=== PATIENT | female | born 1995 | race Asian ===

== ENCOUNTER 2025-06-21 08:27 | Outpatient (AMB) | payer OTHER, BC, SELFPAY ==
--- NOTE | 2025-06-21 08:34 | A.OFFVIS_ITS ---
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 She gets 2 types of headaches. I migraine type headache which occurs about 5 times a month which is intense and maybe preceded by visual aura of spots and blurred vision and squiggly lines. It is associated with nausea vomiting photophobia and sonophobia. She can not function with these and has to go to bed in a quiet dark room. She also gets more frequent daily headaches which are more muscle tension type headaches that can last from minutes to several hours which are sharper or more pressure-like as opposed to the throbbing pulsating migraine. The headaches are generally bilateral mostly behind the eyes top of the head and temples. She also has chronic neck pain and stiffness and pain radiating into the left arm and occasionally left leg and rarely the right leg. She denies any neck injuries. In the neck problem has been going on for 2 years and has increased in the last 1 year. Activity and bending and movement increase her headache and she prefers to sleep. She works 3rd shift and averages only 3 hours of sleep a day if she is yobany it some days she does not sleep at all when she comes home from work. She snores at night but does not stop breathing. She does not drink too much caffeine no alcohol. Occasional marijuana use. She has a family history of headaches possibly migraines in her mother and father and heart disease in her mother. She has not been on any prescription medications and has had no workup done previously. Her only medication at this point and previously has been ibuprofen averaging a 1000 mg a day or every other day which also helps her chronic neck pain. In the past she has also tried Flexeril for her neck pain but is currently not taking it. She has a control implant but that has not impacted her headache frequency or intensity. 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 and has been cancer-free for 14 years FOR[facility]LY [facility], [facility]–1983 Medical History Hypomagnesemia Visual changes Obesity Graves disease Anxiety Acute promyelocytic leukemia Depression Migraine without status migrainosus, not intractable Vitamin D deficiency Hyperthyroidism affecting in first trimester Maternal varicella, non-immune Rubella non-immune status, antepartum Marijuana use Review of Systems Const Details: ?Sleep Difficulty getting to sleep??yes.??Difficulty maintaining sleep??yes?.??Urge to move legs??denies.??Teeth grinding??denies.??Shouting or Kicking during sleep??denies.??Abnormal behavior during sleep??denies.??Excessive sleep ??denies.??Snoring??yes.??Daytime sleepiness??denies.? General/Constitutional Change in appetite??denies.??Chills??denies.??Fatigue??denies.??Fever??denies.?? Weight gain??denies.??Weight loss??denies.? Ophthalmologic Blurred vision??denies.??Diminished visual acuity??denies.? ENT Stuffiness??denies.??Decreased hearing??denies.??Dry mouth??denies.??Ear pain??denies.??Nosebleed??denies.??Ringing in the ears??denies.??Sinus pain ??denies.??Sore throat??denies.??Swollen glands??denies.? Endocrine Cold intolerance??denies.??Excessive thirst??denies.??Frequent urination ??denies.??Heat intolerance??denies.? Respiratory Shortness of breath??denies.??Chest pain??denies.??Cough??denies.? Breast Breast lump??denies.??Nipple discharge??denies.? Cardiovascular Chest pain at rest??denies.??Chest pain with exertion??denies.??Claudication ??denies.??Fluid accumulation in the legs??denies.??Irregular heartbeat ??denies.??Palpitations??denies.? Gastrointestinal Abdominal pain??denies.??Constipation??denies.??Diarrhea??denies.??Heartburn ??denies.??Nausea??denies.??Rectal bleeding??denies.? Hematology Easy bruising??denies.??Prolonged bleeding??denies.? Genitourinary Frequent urination??denies.??Urgency??denies.??Incontinence??denies.??Erectile Dysfunction??denies.? Musculoskeletal Neck pain??yes.??Back pain??denies.??Muscle aches??yes.??Painful joints ??denies.? Neurologic Difficulty swallowing??denies.??Balance difficulty??denies.??Coordination ??normal.??Difficulty speaking??denies.??Dizziness??denies.??Fainting ??denies.??Gait abnormality??denies.??Headache??chronic.??Loss of strength ??denies.??Loss of use of extremity??denies.??Memory loss??denies.??Seizures ??denies.??Tics??denies.??Tingling/Numbness??left UE.??Transient loss of vision??denies.??Tremor??denies.? Psychiatric Anxiety??yes.??Auditory/visual hallucinations??denies.??Delusions??denies.?? Depressed mood??denies.??Stressors??yes.??Substance abuse??denies.??Suicidal thoughts??denies.? Physical Exam Neuro Other: ?Mini Mental Status Exam Level of Consciousness:?Alert.? Orientation:?Knows correct year, month, date, day and season.?Knows correct city, county and state. Knows correct location and floor.? Registration:?Able to register 3 objects.? Attention:?Serial 7's performed accurately.? Recall:?Able to recall 3 out of 3 objects.? Language:?Normal spontaneous speech, fluency, repetition, naming, compreh ension, reading, and writing.? Total Score:?30/30.? Neurological Abnormal neurological findings:??none.? Mental Status:?Alert and oriented X 3.?Normal attention, orientation, memory, and affect.? Cranial Nerves:?Pupils are equal, round and reactive to light. Fundoscopy shows normal disc bilaterally. External occular muscles are intact. Visual cazares are full, no ptosis. Face is symmetrical, no facial weakness or droop. Facial sensations are normal. Tongue protrudes in midline. Palate elevates symmetrically. Shoulder shrugging is normal.? Motor Examination:?Normal muscle tone, bulk and strength.?No atrophy or fasciculations.?No drift of the extended upper extremities.?Deep tendon reflexes are 2+.?Plantars are flexor.? Motor Strength:? Proximal Muscles (out of 5):?5 Distal Muscles (out of 5):?5 Neck Flexors (out of 5):?5 Neck Extensors (out of 5):?5 Deltoid (out of 5):?5 Biceps (out of 5):?5 Triceps (out of 5):?5 Serratus Anterior (out of 5):?5 Wrist Extensors (out of 5):?5 APB (out of 5):?5 Finger Spread (out of 5):?5 Ileopsoas (out of 5):?5 Quadriceps (out of 5):?5 Hamstrings (out of 5):?5 Tibialis Anterior (out of 5):?5 Peronei (out of 5):?5 EDB (out of 5):?5 Gastrocnemius (out of 5):?5 Straight Leg Raising:?90 degrees.? Sensory Exam:?Normal light touch, temperature, pinprick, vibration and joint-position sensations.?Rhomberg sign is absent.? Coordination:?No ataxia,?no titubation,?[id number], [id number] test, and rapid alternating movements were normal.? Gait Exam:?Within normal limits.? Cerebellar Signs:?[id number] and [id number]-[id number] is normal.?No dysdiado chokinesia.? Extrapyramidal System:?No tremor or?rigidity, normal facial expressions.?No bradykinesia. No bradyphrenia. Normal arm swing and posture. No propulsion or retropulsion.? Speech:?Normal,?no dysphasia or dysarthria.? General Examination GENERAL APPEARANCE:??normal,?in no acute distress?,?normal,?in no acute distress.? HEAD:??normocephalic,?atraumatic.? EYES:??sclera non-icteric,?conjunctiva clear.? EARS:??auditory canal clear,?tympanic membrane intact, clear.? NOSE:??no lesions.? ORAL CAVITY:??gums normal,?mucosa moist,?no lesions.? THROAT:??clear.? NECK/THYROID:??no cervical lymphadenopathy,?thyroid normal,?neck supple, full range of motion,?no carotid bruit.? SKIN:??no rashes,?no significant birthmarks.? HEART:??S1, S2 normal,?no murmurs?,?S1, S2 normal,?no murmurs.? LUNGS:??clear anteriorly and posteriorly?,?clear anteriorly and posteriorly.? CHEST:??no gross rib deformity,?clear to auscultation.? BACK:??normal exam of spine.? MUSCULOSKELETAL:??normal.? EXTREMITIES:??no edema?,?no edema.? PERIPHERAL PULSES:??normal.? PSYCH:??alert, oriented,?cognitive function intact,?cooperative with exam?,?alert, oriented,?cognitive function intact,?cooperative with exam.? Assessment & Plan Assessment & Plan (1) Migraine without status migrainosus, not intractable: Code(s): G43.909 - Migraine, unspecified, not intractable, without status migrainosus Category: Medical (2) Muscle tension headache: Code(s): G44.209 - Tension-type headache, unspecified, not intractable Category: Medical (3) Insomnia: Code(s): G47.00 - Insomnia, unspecified Category: Medical (4) Cervical disc disease: Code(s): M50.90 - Cervical disc disorder, unspecified, unspecified cervical region Category: Medical Plan Ct head, MRI C spine. Start prophylaxis with Propranolol and amitriptyline. PRN Sumatriptan and Ondansetron Orders: Orders CT head/brain wo IV con Today G43.909 - Migraine, unspecified, not intractable, without status migrainosus MR cervical spine wo con Today M50.90 - Cervical disc disorder, unspecified, unspecified cervical region Medications: New amitriptyline 25 mg PO BEDTIME 30 tabs 5RF ondansetron 4 mg PO Q8H 14 tabs 3RF sumatriptan succinate do not exceed 2 doses per 24 hrs 100 mg PO Q4H PRN 9 tabs 3RF Migraine Headache MDD 2 tabs ( 200mg) propranolol 40 mg PO BID 60 tabs 5RF Coding Level of Care Code New Pt Level 5 (09596) Diagnoses Migraine without status migrainosus, not intractable G43.909 Muscle tension headache G44.209 Insomnia G47.00 Cervical disc disease M50.90
== END 2025-06-21 09:01 | disposition home or self-care (01) ==
LOC: HO.HSM 08:27
PROVIDERS: Visit Provider Psychiatry & Neurology Neurology
DX: G43.909 Migraine, unspecified, not intractable, without status migrainosus (principal); G44.209 Tension-type headache, unspecified, not intractable; G47.00 Insomnia, unspecified; M50.90 Cervical disc disorder, unspecified, unspecified cervical region
CPT/HCPCS: 99204

== ENCOUNTER → 2025-06-21 08:27 | Outpatient (BNVA) | payer OTHER, BC, SELFPAY | PROVIDERS: Visit Provider Psychiatry & Neurology Neurology | DX: G43.909 Migraine, unspecified, not intractable, without status migrainosus (principal); G47.00 Insomnia, unspecified; G44.209 Tension-type headache, unspecified, not intractable; M50.90 Cervical disc disorder, unspecified, unspecified cervical region | CPT/HCPCS: 99202 ==